=== PATIENT | male | born 1990 | race Caucasian/White ===

== ENCOUNTER 2018-01-17 17:05 | Emergency (ER) | payer OTHER ==
[~2018-01-17] VITALS: Ht 193 cm; Wt 80.0 kg
[2018-01-17 17:18] VITALS: BP 168/96
[2018-01-17] MEDS ORDERED: ONDANSETRON ODT 4 MG PO ONE (19:00)
[2018-01-17] MEDS ORDERED: ONDANSETRON ODT 4 MG ONE (19:03)
== END 2018-01-17 19:13 | disposition home or self-care (01) ==
LOC: ED 19:00
DX: F11.23 Opioid dependence with withdrawal (principal)
CPT/HCPCS: 99283; Q0162